=== PATIENT | female | born 1980 | race Caucasian/White ===

== ENCOUNTER 2017-10-07 11:12 | Emergency (ER) | payer OTHER ==
[~2017-10-07] VITALS: Ht 182.9 cm; Wt 73.2 kg
[~2017-10-07 11:12] MED LIST: AUGMENTIN875 MG PO; BUPRENORPHINE HC8 MG SL; CITALOPRAM HBR40 MG PO; CLINDAMYCIN HC300 MG PO; DOXYCYCLINE HY100 MG PO; MOTRIN800 MG PO; Motrin PO; NATALCARE RX1 TABLE1 PO; SUBUTEX8 MG SL
[2017-10-07] MEDS ORDERED: BACTRIM,SEPT1 TABLET PO (13:27)
[2017-10-07] MEDS ORDERED: KEFLEX500 MG PO (13:27)
[2017-10-07 13:40] VITALS: BP 139/85
== END 2017-10-07 13:42 | disposition home or self-care (01) ==
LOC: EME 11:12
DX: L03.116 Cellulitis of left lower limb (principal); L03.115 Cellulitis of right lower limb; Z86.14 Personal history of Methicillin resistant Staphylococcus aureus infection; F41.9 Anxiety disorder, unspecified; F32.9 Major depressive disorder, single episode, unspecified; F17.200 Nicotine dependence, unspecified, uncomplicated
CPT/HCPCS: 99281; 99284

== ENCOUNTER 2018-01-21 03:17 | Inpatient (IN) | payer OTHER ==
[~2018-01-21] VITALS: Ht 182.9 cm; Wt 75.2 kg
[~2018-01-21 03:17] MED LIST changes: +BACTRIM,SEPT1 TABLET PO; +KEFLEX500 MG PO
[2018-01-21 04:04] LABS: HEMATOCRIT 29.9 % (36.0-46.0); HEMOGLOBIN 9.8 G/DL (11.9-15.5); MCH 29.2 PG (29.0-34.0); MCHC 32.8 G/DL (30.0-36.0); RBC DIS.WIDTH-CV 15.5 % (11.8-14.6); RED BLOOD COUNT 3.36 M/uL (3.80-5.20); WHITE BLOOD COUNT 6.9 K/uL (4.1-10.2)
[2018-01-21 04:07] LABS: CHLORIDE 100 mEq/L (99-109); POTASSIUM 4.5 mEq/L (3.7-5.4); SODIUM 142 mEq/L (136-147)
[2018-01-21 04:09] LABS: GLUCOSE 136 mg/dL (70-99)
[2018-01-21 04:12] LABS: CREATININE 3.9 mg/dL (0.6-1.3); GFR ESTIMATE (CALCULATED) 14 mL/min/
[2018-01-21 04:13] LABS: UREA NITROGEN (BUN) 36 mg/dL (9-23)
[2018-01-21 04:17] LABS: TROP-I INTERPRETATION NEGATIVE; TROPONIN-I 0.05 ng/mL (0.0-0.30)
[2018-01-21 05:04] LABS: PLAT.SUFFICIENCY VERY DECREASED
[2018-01-21 05:14] LABS: INTER. NORMALIZED RATIO 1.3
[2018-01-21 05:17] LABS: PTT 32.4 SEC (25-37)
[2018-01-21 06:50] LABS: PLATELET COUNT 5 K/uL (156-360)
[2018-01-21 07:55] LABS: C-REACTIVE PROTEIN 42.4 MG/L (0-10)
[2018-01-21 08:03] LABS: BASOPHIL (%) 0.8 % (0-1); BASOPHIL COUNT 0.1 K/uL (0-0.1); EOSINOPHIL (%) 0.3 % (0-5); HEMATOCRIT 24.7 % (36.0-46.0); HEMOGLOBIN 8.1 G/DL (11.9-15.5); IMMATURE GRANULOCYTE (%) 0.5 % (0.0-0.7); LYMPHOCYTE (%) 22.9 % (15-42); LYMPHOCYTE COUNT 1.4 K/uL (1.0-2.8); MCH 29.3 PG (29.0-34.0); MCHC 32.8 G/DL (30.0-36.0); MCV 89.5 FL (83-99); MONOCYTE (%) 6.3 % (3-12); MONOCYTE COUNT 0.4 K/uL (0-0.8); NEUTROPHIL (%) 69.2 % (45-76); NEUTROPHIL COUNT 4.2 K/uL (1.8-6.4); PLATELET COUNT 236 K/uL (156-360); RBC DIS.WIDTH-CV 15.7 % (11.8-14.6); RBC DIS.WIDTH-SD 51.3 % (39-53); RED BLOOD COUNT 2.76 M/uL (3.80-5.20); WHITE BLOOD COUNT 6.1 K/uL (4.1-10.2)
[2018-01-21 08:11] LABS: FIBRINOGEN 315 mg/dL (150-450)
[2018-01-21] MEDS ORDERED: PROVENTIL,2.5 MG/3 M IH (08:38)
[2018-01-21] MEDS ORDERED: TYLENOL REGULA325 MG PO (08:38)
[2018-01-21] MEDS ORDERED: COLACE100 MG PO (08:39)
[2018-01-21] MEDS ORDERED: CELEXA20 MG PO (08:39)
[2018-01-21] MEDS ORDERED: LITE COAT ASPI325 M1 PO (08:39)
[2018-01-21] MEDS ORDERED: IRON325 M1 PO (08:40)
[2018-01-21] MEDS ORDERED: ZESTRIL10 MG PO (08:41)
[2018-01-21] MEDS ORDERED: SYNTHROID25 MCG PO (08:41)
[2018-01-21] MEDS ORDERED: PROTONIX40 MG PO (08:42)
[2018-01-21] MEDS ORDERED: ROXICODONE5 MG PO (08:42)
[2018-01-21] MEDS ORDERED: TOPROL XL25 MG PO (08:42)
[2018-01-21] MEDS ORDERED: NEPHRO-VITE,1 TABLET PO (08:43)
[2018-01-21 08:47] LABS: HEMOGLOBIN 8.2 G/DL (11.9-15.5); MCH 29.6 PG (29.0-34.0); MCHC 32.8 G/DL (30.0-36.0); MCV 90.3 FL (83-99); PLATELET COUNT 209 K/uL (156-360); RBC DIS.WIDTH-CV 15.7 % (11.8-14.6); RBC DIS.WIDTH-SD 51.6 % (39-53); RED BLOOD COUNT 2.77 M/uL (3.80-5.20); WHITE BLOOD COUNT 5.4 K/uL (4.1-10.2)
[2018-01-21 09:38] LABS: D-DIMER LATEX POSITIVE
[2018-01-21 09:44] LABS: SCHISTOCYTES NONE SEEN
[2018-01-21 09:48] VITALS: BP 134/90
[2018-01-21 10:48] LABS: ERTH.SED.RATE 31 MM/HR (0-20)
[2018-01-21 12:10] VITALS: BP 130/89
[2018-01-21 16:07] LABS: ALBUMIN 3.1 G/DL (3.2-4.8); IRON 27 MCG/DL (35-150); TRANSFERRIN (TIBC) 179.4 mg/dL (215-380); TRANSFERRIN SATUR. 15 % (20-55)
[2018-01-21 16:10] VITALS: BP 116/89
[2018-01-21 19:15] VITALS: BP 110/80
[2018-01-21 23:01] VITALS: BP 101/70
[2018-01-22 03:45] VITALS: BP 114/79
[2018-01-22 08:19] LABS: BASOPHIL COUNT 0.1 K/uL (0-0.1); EOSINOPHIL (%) 2.6 % (0-5); EOSINOPHIL COUNT 0.1 K/uL (0-0.3); HEMATOCRIT 24.1 % (36.0-46.0); HEMOGLOBIN 7.6 G/DL (11.9-15.5); IMMATURE GRANULOCYTE (%) 0.2 % (0.0-0.7); LYMPHOCYTE (%) 31.8 % (15-42); LYMPHOCYTE COUNT 1.6 K/uL (1.0-2.8); MCHC 31.5 G/DL (30.0-36.0); MONOCYTE (%) 9.2 % (3-12); MONOCYTE COUNT 0.5 K/uL (0-0.8); NEUTROPHIL (%) 55.2 % (45-76); NEUTROPHIL COUNT 2.8 K/uL (1.8-6.4); PLATELET COUNT 217 K/uL (156-360); RBC DIS.WIDTH-CV 15.5 % (11.8-14.6); RBC DIS.WIDTH-SD 51.8 % (39-53); RED BLOOD COUNT 2.62 M/uL (3.80-5.20)
[2018-01-22 08:29] LABS: ALBUMIN 2.8 G/DL (3.2-4.8); CHLORIDE 98 MEQ/L (99-109); POTASSIUM 4.3 MEQ/L (3.7-5.4); SODIUM 136 MEQ/L (136-147)
[2018-01-22 08:34] LABS: CREATININE 3.3 MG/DL (0.6-1.3); GFR ESTIMATE (CALCULATED) 17 mL/min/; GLUCOSE 146 mg/dL (70-99); PHOSPHORUS 4.8 mg/dL (2.5-4.9); UREA NITROGEN (BUN) 28 mg/dL (9-23)
[2018-01-22 11:09] LABS: ALKALINE PHOSPHATASE 80 IU/L (3-129); ALT (GPT) 9 IU/L (3-49); AST (GOT) 11 IU/L (2-34); DIRECT BILIRUBIN 0.1 mg/dL (0.0-0.3); TOTAL BILIRUBIN 0.4 MG/DL (0.0-1.0)
[2018-01-22 15:49] VITALS: BP 106/74
[2018-01-22 20:15] VITALS: BP 109/75
[2018-01-23 00:05] VITALS: BP 99/62
[2018-01-23 01:41] LABS: APPEARANCE CLOUDY ((CLEAR)); COLOR BROWN ((YELLOW))
[2018-01-23 01:42] LABS: BILIRUBIN MODERATE; BLOOD LARGE; GLUCOSE (STRIP) NEGATIVE; KETONES NEGATIVE; LEUKOCYTES NEGATIVE; NITRITE NEGATIVE; PH, URINE 8.5 (5-8); PROTEIN (STRIP) 2000; UROBILINOGEN 0.2 MG/DL (0.2-1.0)
[2018-01-23 01:45] LABS: ICTOTEST NEGATIVE
[2018-01-23 01:53] LABS: BACTERIA RARE /HPF; EPITHELIAL CELLS RARE /HPF; MUCUS NONE SEEN /LPF; RED BLOOD CELLS TNTC /HPF (0-5); UCUL ADDED? YES; WHITE BLOOD CELLS 0-5 /HPF (0-5)
[2018-01-23 02:12] LABS: BENZODIAZEPINES, URINE SCREEN Negative (200 ng/mL)
[2018-01-23 04:12] VITALS: BP 111/23
[2018-01-23 08:20] VITALS: BP 114/80
[2018-01-23 12:21] VITALS: BP 105/68
[2018-01-23] MEDS ORDERED: VENTOLIN HFA18 GM IH (14:20)
== END 2018-01-23 15:08 | disposition home or self-care (01) | DRG 640 ==
LOC: EME 03:17 → ENRESERV 06:04 → EDOF 06:04 → 4EAST 06:36 → EDOF 06:36 → ENRESERV 06:49 → CANRESERV 06:54 → ENRESERV 07:04 → EDOF 07:59 → ENRESERV 08:18 → 4EAST 09:14 → ENRESERV 21:41 → 5EAST 22:44
PROVIDERS: Hospitalist; Internal Medicine Nephrology; Physician Assistant Medical
PROC: 0W993ZZ Drainage of Right Pleural Cavity, Percutaneous Approach (ICD-10-PCS; principal; 2018-01-21)
PROC: 5A1D70Z Performance of Urinary Filtration, Intermittent, Less than 6 Hours Per Day (ICD-10-PCS; principal; 2018-01-21)
DX: E87.70 Fluid overload, unspecified (principal); N18.6 End stage renal disease; I31.3 Pericardial effusion (noninflammatory); J90 Pleural effusion, not elsewhere classified; Z99.2 Dependence on renal dialysis; E87.2 Acidosis; D63.1 Anemia in chronic kidney disease; Z95.2 Presence of prosthetic heart valve; Z86.14 Personal history of Methicillin resistant Staphylococcus aureus infection; Z79.82 Long term (current) use of aspirin; F17.200 Nicotine dependence, unspecified, uncomplicated
CPT/HCPCS: 71046; 71275; 76942; 80048; 80069; 80076; 80306 90; 81003; 82040; 82948; 83540; 83605; 84466; 84484; 85025; 85027; 85378; 85379; 85384; 85610; 85651; 85730; 86140; 87040; 87077; 87086; 87186; 93005; 93971; 94640; 94640 76; 94799; 99202; 99281; 99285; J1644; J1756; J2270; J2543; J3010; J3370; J7050

== ENCOUNTER 2018-01-27 19:47 | Emergency (ER) | payer OTHER ==
[~2018-01-27] VITALS: Ht 188 cm; Wt 65.8 kg
[~2018-01-27 19:47] MED LIST changes: +CELEXA20 MG PO; +COLACE100 MG PO; +IRON325 M1 PO; +LITE COAT ASPI325 M1 PO; +NEPHRO-VITE,1 TABLET PO; +PROTONIX40 MG PO; +PROVENTIL,2.5 MG/3 M IH; +ROXICODONE5 MG PO; +SYNTHROID25 MCG PO; +TOPROL XL25 MG PO; +TYLENOL REGULA325 MG PO; +VENTOLIN HFA18 GM IH; +ZESTRIL10 MG PO
[2018-01-27 20:33] LABS: HEMATOCRIT 29.1 % (36.0-46.0); HEMOGLOBIN 9.2 G/DL (11.9-15.5); MCH 29.2 PG (29.0-34.0); MCHC 31.6 G/DL (30.0-36.0); MCV 92.4 FL (83-99); PLATELET COUNT 201 K/uL (156-360); RBC DIS.WIDTH-SD 52.8 % (39-53); RED BLOOD COUNT 3.15 M/uL (3.80-5.20); WHITE BLOOD COUNT 4.7 K/uL (4.1-10.2)
[2018-01-27 20:49] LABS: CHLORIDE 98 mEq/L (99-109); POTASSIUM 4.2 mEq/L (3.7-5.4)
[2018-01-27 20:51] LABS: GLUCOSE 128 mg/dL (70-99)
[2018-01-27 20:55] LABS: UREA NITROGEN (BUN) 20 mg/dL (9-23)
[2018-01-27 20:58] LABS: CREATININE 3.9 mg/dL (0.6-1.3); GFR ESTIMATE (CALCULATED) 14 mL/min/; SODIUM 143 mEq/L (136-147)
[2018-01-27 21:03] LABS: TROP-I INTERPRETATION NEGATIVE; TROPONIN-I 0.05 ng/mL (0.0-0.30)
[2018-01-27] MEDS ORDERED: PERCOCET 5/31 TABLET PO (22:52)
[2018-01-28 01:16] VITALS: BP 110/80
== END 2018-01-28 01:17 | disposition home or self-care (01) ==
LOC: EME 19:47
DX: R07.9 Chest pain, unspecified (principal); Z98.890 Other specified postprocedural states; R06.02 Shortness of breath; J45.909 Unspecified asthma, uncomplicated; I10 Essential (primary) hypertension; Z86.14 Personal history of Methicillin resistant Staphylococcus aureus infection; Z79.82 Long term (current) use of aspirin; F17.200 Nicotine dependence, unspecified, uncomplicated
CPT/HCPCS: 71046; 80048; 84484; 85027; 93005; 99281; 99284

== ENCOUNTER 2018-02-02 00:26 | Emergency (ER) | payer OTHER ==
[~2018-02-02] VITALS: Ht 182.9 cm; Wt 63.3 kg
[~2018-02-02 00:26] MED LIST changes: +PERCOCET 5/31 TABLET PO
[2018-02-02 00:54] LABS: HEMOGLOBIN 9.7 G/DL (11.9-15.5); MCH 29.4 PG (29.0-34.0); MCHC 32.3 G/DL (30.0-36.0); MCV 90.9 FL (83-99); RBC DIS.WIDTH-CV 15.9 % (11.8-14.6); RBC DIS.WIDTH-SD 52.5 % (39-53); WHITE BLOOD COUNT 8.1 K/uL (4.1-10.2)
[2018-02-02 00:59] LABS: PLATELET COUNT 272 K/uL (156-360)
[2018-02-02 01:02] LABS: CHLORIDE 98 mEq/L (99-109); SODIUM 141 mEq/L (136-147)
[2018-02-02 01:03] LABS: POTASSIUM 2.7 mEq/L (3.7-5.4)
[2018-02-02 01:04] LABS: GLUCOSE 110 mg/dL (70-99)
[2018-02-02 01:08] LABS: CREATININE 3.4 mg/dL (0.6-1.3); GFR ESTIMATE (CALCULATED) 16 mL/min/
[2018-02-02 01:09] LABS: UREA NITROGEN (BUN) 29 mg/dL (9-23)
[2018-02-02 01:30] LABS: ALBUMIN 3.9 g/dL (3.2-4.8)
[2018-02-02 01:32] LABS: TOTAL PROTEIN 7.3 g/dL (6.4-8.3)
[2018-02-02 01:34] LABS: TOTAL BILIRUBIN 0.4 mg/dL (0.0-1.0)
[2018-02-02 01:35] LABS: ALKALINE PHOSPHATASE 87 IU/L (3-129)
[2018-02-02 01:38] LABS: ALT (GPT) 8 IU/L (3-49); AST (GOT) 12 IU/L (2-34); DIRECT BILIRUBIN 0.2 mg/dL (0.0-0.3)
[2018-02-02 01:39] LABS: LIPASE 176 U/L (1.0-51.0); TROP-I INTERPRETATION NEGATIVE; TROPONIN-I 0.05 ng/mL (0.0-0.30)
[2018-02-02] MEDS ORDERED: DILAUDID2 MG PO (02:34)
[2018-02-02 03:35] VITALS: BP 129/99
== END 2018-02-02 03:36 | disposition home or self-care (01) ==
LOC: EME 00:26
DX: N17.9 Acute kidney failure, unspecified (principal); I12.0 Hypertensive chronic kidney disease with stage 5 chronic kidney disease or end stage renal disease; N18.6 End stage renal disease; Z99.2 Dependence on renal dialysis; E87.6 Hypokalemia; R07.89 Other chest pain; G89.29 Other chronic pain; J45.909 Unspecified asthma, uncomplicated; G43.909 Migraine, unspecified, not intractable, without status migrainosus; F41.9 Anxiety disorder, unspecified; F32.9 Major depressive disorder, single episode, unspecified; F98.8 Other specified behavioral and emotional disorders with onset usually occurring in childhood and adolescence; Z98.890 Other specified postprocedural states; Z87.891 Personal history of nicotine dependence; Z86.14 Personal history of Methicillin resistant Staphylococcus aureus infection; Z87.19 Personal history of other diseases of the digestive system
CPT/HCPCS: 71046; 80048; 80076; 83690; 84484; 85027; 99281; 99284; J3010

== ENCOUNTER 2018-02-03 12:01 | Emergency (ER) | payer OTHER ==
[~2018-02-03] VITALS: Ht 182.9 cm; Wt 59.2 kg
[~2018-02-03 12:01] MED LIST changes: +DILAUDID2 MG PO
[2018-02-03 13:27] LABS: HEMATOCRIT 31.5 % (36.0-46.0); HEMOGLOBIN 10.2 G/DL (11.9-15.5); MCH 29.4 PG (29.0-34.0); MCHC 32.4 G/DL (30.0-36.0); MCV 90.8 FL (83-99); PLATELET COUNT 255 K/uL (156-360); RBC DIS.WIDTH-SD 53.4 % (39-53); RED BLOOD COUNT 3.47 M/uL (3.80-5.20); WHITE BLOOD COUNT 6.7 K/uL (4.1-10.2)
[2018-02-03 13:36] LABS: ALBUMIN 3.8 g/dL (3.2-4.8); CHLORIDE 97 mEq/L (99-109); SODIUM 141 mEq/L (136-147)
[2018-02-03 13:38] LABS: GLUCOSE 106 mg/dL (70-99); POTASSIUM 3.9 mEq/L (3.7-5.4); TOTAL PROTEIN 6.9 g/dL (6.4-8.3)
[2018-02-03 13:41] LABS: TOTAL BILIRUBIN 0.7 mg/dL (0.0-1.0)
[2018-02-03 13:42] LABS: ALKALINE PHOSPHATASE 81 IU/L (3-129); CREATININE 2.8 mg/dL (0.6-1.3); GFR ESTIMATE (CALCULATED) 20 mL/min/
[2018-02-03 13:43] LABS: AST (GOT) 13 IU/L (2-34); UREA NITROGEN (BUN) 20 mg/dL (9-23)
[2018-02-03 13:45] LABS: ALT (GPT) 8 IU/L (3-49); LIPASE 68 U/L (1.0-51.0)
[2018-02-03 13:51] LABS: TROP-I INTERPRETATION NEGATIVE; TROPONIN-I 0.05 ng/mL (0.0-0.30)
[2018-02-03 18:18] VITALS: BP 135/91
== END 2018-02-03 18:15 | disposition home or self-care (01) ==
LOC: EME 12:01
PROVIDERS: Emergency Medicine
DX: R07.9 Chest pain, unspecified (principal); G89.12 Acute post-thoracotomy pain; Z95.2 Presence of prosthetic heart valve; I12.9 Hypertensive chronic kidney disease with stage 1 through stage 4 chronic kidney disease, or unspecified chronic kidney disease; N18.9 Chronic kidney disease, unspecified; Z99.2 Dependence on renal dialysis; J45.909 Unspecified asthma, uncomplicated; F32.9 Major depressive disorder, single episode, unspecified; F41.9 Anxiety disorder, unspecified; Z87.891 Personal history of nicotine dependence
CPT/HCPCS: 71045; 71250; 74150; 80053; 83690; 84484; 85027; 93005; 99281; 99285

== ENCOUNTER 2018-02-22 15:20 | Inpatient (IN) | payer OTHER ==
[~2018-02-22] VITALS: Ht 182.9 cm; Wt 60.0 kg
[2018-02-22 16:27] LABS: CHLORIDE 99 mEq/L (99-109); POTASSIUM 4.3 mEq/L (3.7-5.4); SODIUM 141 mEq/L (136-147)
[2018-02-22 16:29] LABS: GLUCOSE 98 mg/dL (70-99)
[2018-02-22 16:30] LABS: HEMATOCRIT 38.6 % (36.0-46.0); MCH 29.6 PG (29.0-34.0); MCHC 31.6 G/DL (30.0-36.0); MCV 93.7 FL (83-99); PLATELET COUNT 212 K/uL (156-360); RBC DIS.WIDTH-CV 16.3 % (11.8-14.6); RBC DIS.WIDTH-SD 56.1 % (39-53); RED BLOOD COUNT 4.12 M/uL (3.80-5.20); WHITE BLOOD COUNT 4.1 K/uL (4.1-10.2)
[2018-02-22 16:31] LABS: HEMOGLOBIN 12.2 G/DL (11.9-15.5)
[2018-02-22 16:33] LABS: CREATININE 3.1 mg/dL (0.6-1.3); GFR ESTIMATE (CALCULATED) 18 mL/min/
[2018-02-22 16:34] LABS: UREA NITROGEN (BUN) 24 mg/dL (9-23)
[2018-02-22 16:41] LABS: TROP-I INTERPRETATION NEGATIVE; TROPONIN-I 0.01 ng/mL (0.0-0.30)
[2018-02-22] MEDS ORDERED: TRAMADOL HCL50 MG PO (17:53)
[2018-02-22 20:32] VITALS: BP 122/77
[2018-02-22 23:57] VITALS: BP 109/71
[2018-02-23 04:19] VITALS: BP 115/75
[2018-02-23 08:32] VITALS: BP 131/91
[2018-02-23 08:38] LABS: THYROTROPIN (TSH) 2.2 MIU/L (0.4-5.5)
[2018-02-23 08:40] LABS: HEMATOCRIT 30.1 % (36.0-46.0); HEMOGLOBIN 9.2 G/DL (11.9-15.5); MCH 28.9 PG (29.0-34.0); MCHC 30.6 G/DL (30.0-36.0); MCV 94.7 FL (83-99); PLATELET COUNT 195 K/uL (156-360); RBC DIS.WIDTH-CV 16.2 % (11.8-14.6); RBC DIS.WIDTH-SD 56.7 % (39-53); RED BLOOD COUNT 3.18 M/uL (3.80-5.20); WHITE BLOOD COUNT 4.2 K/uL (4.1-10.2)
[2018-02-23 09:00] LABS: TROP-I INTERPRETATION NEGATIVE; TROPONIN-I < 0.01 ng/mL (0.0-0.30)
[2018-02-23 09:08] LABS: CHLORIDE 104 MEQ/L (99-109); CREATININE 3.5 MG/DL (0.6-1.3); GFR ESTIMATE (CALCULATED) 16 mL/min/; GLUCOSE 93 mg/dL (70-99); POTASSIUM 4.4 MEQ/L (3.7-5.4); SODIUM 140 MEQ/L (136-147); UREA NITROGEN (BUN) 32 mg/dL (9-23)
[2018-02-23 11:11] LABS: QUANTITATIVE HCG < 4.0 MIU/ML
[2018-02-23 19:00] VITALS: BP 115/78
[2018-02-24] VITALS: BP 127/89
[2018-02-24 04:32] VITALS: BP 121/90
[2018-02-24 05:12] LABS: HEMATOCRIT 30.7 % (36.0-46.0); HEMOGLOBIN 9.7 G/DL (11.9-15.5); MCHC 31.6 G/DL (30.0-36.0); MCV 91.6 FL (83-99); PLATELET COUNT 232 K/uL (156-360); RBC DIS.WIDTH-SD 53.6 % (39-53); RED BLOOD COUNT 3.35 M/uL (3.80-5.20); WHITE BLOOD COUNT 5.4 K/uL (4.1-10.2)
[2018-02-24 08:00] VITALS: BP 120/87
[2018-02-24 11:13] LABS: TROP-I INTERPRETATION NEGATIVE; TROPONIN-I 0.02 ng/mL (0.0-0.30)
[2018-02-24 12:08] VITALS: BP 117/88
[2018-02-24 15:22] VITALS: BP 115/75
[2018-02-24 19:12] VITALS: BP 115/79
[2018-02-25 00:10] VITALS: BP 95/65
[2018-02-25 04:18] VITALS: BP 99/58
[2018-02-25 07:35] VITALS: BP 101/68
[2018-02-25 08:27] LABS: BASOPHIL COUNT 0.1 K/uL (0-0.1); EOSINOPHIL (%) 2.4 % (0-5); EOSINOPHIL COUNT 0.1 K/uL (0-0.3); HEMATOCRIT 30.1 % (36.0-46.0); HEMOGLOBIN 9.4 G/DL (11.9-15.5); IMMATURE GRANULOCYTE (%) 0.2 % (0.0-0.7); LYMPHOCYTE (%) 22.2 % (15-42); LYMPHOCYTE COUNT 1.1 K/uL (1.0-2.8); MCH 29.4 PG (29.0-34.0); MCHC 31.2 G/DL (30.0-36.0); MCV 94.1 FL (83-99); MONOCYTE (%) 6.5 % (3-12); MONOCYTE COUNT 0.3 K/uL (0-0.8); NEUTROPHIL (%) 67.7 % (45-76); NEUTROPHIL COUNT 3.4 K/uL (1.8-6.4); PLATELET COUNT 213 K/uL (156-360); RBC DIS.WIDTH-CV 15.9 % (11.8-14.6); RBC DIS.WIDTH-SD 54.9 % (39-53)
[2018-02-25 08:50] LABS: ALBUMIN 3.5 G/DL (3.2-4.8); CHLORIDE 102 MEQ/L (99-109); POTASSIUM 4.6 MEQ/L (3.7-5.4); SODIUM 138 MEQ/L (136-147)
[2018-02-25 08:55] LABS: CREATININE 3.8 MG/DL (0.6-1.3); GFR ESTIMATE (CALCULATED) 14 mL/min/; PHOSPHORUS 4.7 mg/dL (2.5-4.9); UREA NITROGEN (BUN) 42 mg/dL (9-23)
[2018-02-25 08:56] LABS: GLUCOSE 155 mg/dL (70-99)
[2018-02-25 13:08] VITALS: BP 107/68
[2018-02-25] MEDS ORDERED: GABAPENTIN300 MG PO (15:33)
[2018-02-25] MEDS ORDERED: OXYCODONE HCL5 MG PO (15:33)
[2018-02-25] MEDS ORDERED: TOPROL XL25 MG PO (15:33)
[2018-02-25] MEDS ORDERED: TIZANIDINE HCL2 MG PO (15:33)
[2018-02-25 15:59] VITALS: BP 110/70
[2018-02-25] MEDS ORDERED: LIDOCARE1 EACH TP (16:10)
== END 2018-02-25 18:30 | disposition home or self-care (01) | DRG 947 ==
LOC: EME 15:20 → 4SOUTH 19:08 → EDOF 19:08 → ENRESERV 19:12 → 4SOUTH 20:21
PROVIDERS: Internal Medicine; Internal Medicine Cardiovascular Disease; Internal Medicine Nephrology
PROC: 5A1D70Z Performance of Urinary Filtration, Intermittent, Less than 6 Hours Per Day (ICD-10-PCS; principal; 2018-02-22)
DX: G89.18 Other acute postprocedural pain (principal); R07.89 Other chest pain; I31.3 Pericardial effusion (noninflammatory); I13.2 Hypertensive heart and chronic kidney disease with heart failure and with stage 5 chronic kidney disease, or end stage renal disease; I50.22 Chronic systolic (congestive) heart failure; N99.0 Postprocedural (acute) (chronic) kidney failure; N18.6 End stage renal disease; D63.1 Anemia in chronic kidney disease; I42.0 Dilated cardiomyopathy; E03.9 Hypothyroidism, unspecified; F11.21 Opioid dependence, in remission; F90.9 Attention-deficit hyperactivity disorder, unspecified type; G89.29 Other chronic pain; F32.9 Major depressive disorder, single episode, unspecified; F41.9 Anxiety disorder, unspecified; I27.20 Pulmonary hypertension, unspecified; D50.9 Iron deficiency anemia, unspecified; I08.1 Rheumatic disorders of both mitral and tricuspid valves; Z86.14 Personal history of Methicillin resistant Staphylococcus aureus infection; Z99.2 Dependence on renal dialysis; Z79.82 Long term (current) use of aspirin; Z87.891 Personal history of nicotine dependence; Z87.74 Personal history of (corrected) congenital malformations of heart and circulatory system; Z22.322 Carrier or suspected carrier of Methicillin resistant Staphylococcus aureus
CPT/HCPCS: 71046; 71250; 71275; 78582; 80048; 80069; 84443; 84484; 84702; 85025; 85027; 93005; 93306; 93970; 99281; 99285; A9540; A9567; G0378; J0780; J1200; J1644; J1650; J1885; Q0169

== ENCOUNTER 2018-04-24 00:27 | Inpatient (IN) | payer OTHER ==
[~2018-04-24] VITALS: Ht 182.9 cm; Wt 68.0 kg
[~2018-04-24 00:27] MED LIST changes: +GABAPENTIN300 MG PO; +LIDOCARE1 EACH TP; -LITE COAT ASPI325 M1 PO; +LO-DOSE ASPIRIN81 M1 PO; +OXYCODONE HCL5 MG PO; +TIZANIDINE HCL2 MG PO; +TRAMADOL HCL50 MG PO
[2018-04-24 01:08] LABS: HEMATOCRIT 30.7 % (36.0-46.0); HEMOGLOBIN 10.1 G/DL (11.9-15.5); MCH 29.8 PG (29.0-34.0); MCHC 32.9 G/DL (30.0-36.0); MCV 90.6 FL (83-99); PLATELET COUNT 150 K/uL (156-360); RBC DIS.WIDTH-CV 14.8 % (11.8-14.6); RBC DIS.WIDTH-SD 48.7 % (39-53); RED BLOOD COUNT 3.39 M/uL (3.80-5.20); WHITE BLOOD COUNT 7.7 K/uL (4.1-10.2)
[2018-04-24 01:19] LABS: CHLORIDE 103 mEq/L (99-109); POTASSIUM 4.2 mEq/L (3.7-5.4); SODIUM 136 mEq/L (136-147)
[2018-04-24 01:25] LABS: GFR ESTIMATE (CALCULATED) 16 mL/min/
[2018-04-24 01:26] LABS: CREATININE 3.4 mg/dL (0.6-1.3); UREA NITROGEN (BUN) 32 mg/dL (9-23)
[2018-04-24 02:16] LABS: GLUCOSE 109 mg/dL (70-99)
[2018-04-24 02:49] LABS: APPEARANCE CLOUDY ((CLEAR)); BILIRUBIN NEGATIVE; BLOOD LARGE; GLUCOSE (STRIP) 50; KETONES NEGATIVE; LEUKOCYTES NEGATIVE; NITRITE NEGATIVE; PROTEIN (STRIP) >=500; SPECIFIC GRAVITY 1.018 (1.000-1.030); UROBILINOGEN 0.2 MG/DL (0.2-1.0)
[2018-04-24 03:08] LABS: COLOR RED ((YELLOW))
[2018-04-24 04:07] LABS: RED BLOOD CELLS TNTC /HPF (0-5); UCUL ADDED? YES
[2018-04-24 04:44] LABS: BASOPHIL (%) 0.6 % (0-1); BASOPHIL COUNT 0.1 K/uL (0-0.1); EOSINOPHIL (%) 1.3 % (0-5); EOSINOPHIL COUNT 0.1 K/uL (0-0.3); HEMATOCRIT 27.7 % (36.0-46.0); HEMOGLOBIN 9.2 G/DL (11.9-15.5); IMMATURE GRANULOCYTE (%) 0.4 % (0.0-0.7); LYMPHOCYTE (%) 20.6 % (15-42); LYMPHOCYTE COUNT 1.8 K/uL (1.0-2.8); MCH 30.1 PG (29.0-34.0); MCHC 33.2 G/DL (30.0-36.0); MCV 90.5 FL (83-99); MONOCYTE (%) 12.2 % (3-12); MONOCYTE COUNT 1.1 K/uL (0-0.8); NEUTROPHIL (%) 64.9 % (45-76); NEUTROPHIL COUNT 5.8 K/uL (1.8-6.4); PLATELET COUNT 147 K/uL (156-360); RBC DIS.WIDTH-CV 14.8 % (11.8-14.6); RBC DIS.WIDTH-SD 48.8 % (39-53); RED BLOOD COUNT 3.06 M/uL (3.80-5.20); WHITE BLOOD COUNT 8.9 K/uL (4.1-10.2)
[2018-04-24 05:10] LABS: ALBUMIN 3.4 g/dL (3.2-4.8); CHLORIDE 104 mEq/L (99-109); POTASSIUM 4.2 mEq/L (3.7-5.4); SODIUM 137 mEq/L (136-147)
[2018-04-24 05:12] LABS: GLUCOSE 99 mg/dL (70-99)
[2018-04-24 05:13] LABS: TOTAL PROTEIN 5.7 g/dL (6.4-8.3)
[2018-04-24 05:14] LABS: TOTAL BILIRUBIN 0.8 mg/dL (0.0-1.0)
[2018-04-24 05:16] LABS: ALKALINE PHOSPHATASE 56 IU/L (3-129); CREATININE 3.6 mg/dL (0.6-1.3); GFR ESTIMATE (CALCULATED) 15 mL/min/
[2018-04-24 05:17] LABS: UREA NITROGEN (BUN) 36 mg/dL (9-23)
[2018-04-24 05:18] LABS: AST (GOT) 18 IU/L (2-34)
[2018-04-24 05:19] LABS: ALT (GPT) 14 IU/L (3-49)
[2018-04-24 05:46] VITALS: BP 115/60
[2018-04-24 06:07] LABS: INTER. NORMALIZED RATIO 1.2
[2018-04-24 07:32] VITALS: BP 96/54
[2018-04-24 11:06] VITALS: BP 98/56
[2018-04-24] MEDS ORDERED: MIDODRINE HCL2.5 MG PO (11:25)
[2018-04-24] MEDS ORDERED: DILAUDID2 MG PO (11:26)
[2018-04-24 12:12] VITALS: BP 118/58
[2018-04-24 13:06] LABS: TROP-I INTERPRETATION NEGATIVE; TROPONIN-I 0.03 ng/mL (0.0-0.30)
[2018-04-24 14:13] LABS: C-REACTIVE PROTEIN 147.8 MG/L (0-10); MAGNESIUM 2.3 mg/dl (1.3-2.7)
[2018-04-24 17:14] VITALS: BP 142/84
[2018-04-24 20:17] VITALS: BP 118/66
[2018-04-25] VITALS (7 sets, daily range): BP systolic 109–153; BP diastolic 57–82
[2018-04-25 07:06] LABS: TROP-I INTERPRETATION NEGATIVE; TROPONIN-I < 0.01 ng/mL (0.0-0.30)
[2018-04-25 07:07] LABS: ALBUMIN 3.4 G/DL (3.2-4.8); ALKALINE PHOSPHATASE 47 IU/L (3-129); ALT (GPT) 13 IU/L (3-49); AST (GOT) 19 IU/L (2-34); CHLORIDE 110 MEQ/L (99-109); CREATININE 4.1 MG/DL (0.6-1.3); GFR ESTIMATE (CALCULATED) 13 mL/min/; GLUCOSE 106 mg/dL (70-99); PHOSPHORUS 6.8 mg/dL (2.5-4.9); SODIUM 143 MEQ/L (136-147); TOTAL BILIRUBIN 0.5 MG/DL (0.0-1.0); TOTAL PROTEIN 5.8 G/DL (6.4-8.3); UREA NITROGEN (BUN) 48 mg/dL (9-23); VANCOMYCIN, TROUGH 16.8 MCG/ML (10-20)
[2018-04-25 09:27] LABS: BASOPHIL (%) 0.6 % (0-1); EOSINOPHIL COUNT 0.2 K/uL (0-0.3); HEMATOCRIT 30.7 % (36.0-46.0); HEMOGLOBIN 9.8 G/DL (11.9-15.5); IMMATURE GRANULOCYTE (%) 0.2 % (0.0-0.7); LYMPHOCYTE (%) 34.7 % (15-42); LYMPHOCYTE COUNT 1.8 K/uL (1.0-2.8); MCH 29.3 PG (29.0-34.0); MCHC 31.9 G/DL (30.0-36.0); MCV 91.9 FL (83-99); MONOCYTE (%) 10.3 % (3-12); MONOCYTE COUNT 0.5 K/uL (0-0.8); NEUTROPHIL (%) 51.2 % (45-76); NEUTROPHIL COUNT 2.6 K/uL (1.8-6.4); PLATELET COUNT 149 K/uL (156-360); RBC DIS.WIDTH-CV 14.4 % (11.8-14.6); RED BLOOD COUNT 3.34 M/uL (3.80-5.20); WHITE BLOOD COUNT 5.1 K/uL (4.1-10.2)
[2018-04-25 13:21] LABS: CREATINE KINASE 20 IU/L (1-294); TOTAL CK 20 IU/L (1-294)
[2018-04-25 13:49] LABS: CK-MB 0.8 ng/mL (0.0-4.9)
[2018-04-26 04:08] VITALS: BP 136/77
[2018-04-26 06:09] LABS: BASOPHIL (%) 0.6 % (0-1); EOSINOPHIL (%) 0.3 % (0-5); HEMATOCRIT 28.5 % (36.0-46.0); HEMOGLOBIN 9.5 G/DL (11.9-15.5); IMMATURE GRANULOCYTE (%) 0.3 % (0.0-0.7); LYMPHOCYTE (%) 23.5 % (15-42); LYMPHOCYTE COUNT 0.8 K/uL (1.0-2.8); MCH 29.4 PG (29.0-34.0); MCHC 33.3 G/DL (30.0-36.0); MCV 88.2 FL (83-99); MONOCYTE (%) 4.8 % (3-12); MONOCYTE COUNT 0.2 K/uL (0-0.8); NEUTROPHIL (%) 70.5 % (45-76); NEUTROPHIL COUNT 2.5 K/uL (1.8-6.4); PLATELET COUNT 179 K/uL (156-360); RBC DIS.WIDTH-CV 13.6 % (11.8-14.6); RBC DIS.WIDTH-SD 43.9 % (39-53); RED BLOOD COUNT 3.23 M/uL (3.80-5.20); WHITE BLOOD COUNT 3.6 K/uL (4.1-10.2)
[2018-04-26 06:51] LABS: CHLORIDE 102 MEQ/L (99-109); GFR ESTIMATE (CALCULATED) 19 mL/min/; GLUCOSE 120 mg/dL (70-99); POTASSIUM 4.4 MEQ/L (3.7-5.4); SODIUM 139 MEQ/L (136-147)
[2018-04-26 06:59] LABS: CREATININE 2.9 MG/DL (0.6-1.3); UREA NITROGEN (BUN) 23 mg/dL (9-23)
[2018-04-26 08:52] VITALS: BP 146/96
[2018-04-26] MEDS ORDERED: LOPRESSOR25 MG PO (11:14)
[2018-04-26] MEDS ORDERED: RENVELA800 MG PO (11:14)
[2018-04-26] MEDS ORDERED: PREDNISONE10 MG PO (11:14)
[2018-04-26 11:15] VITALS: BP 166/87
[2018-04-26 11:35] LABS: PHOSPHORUS 3.3 mg/dL (2.5-4.9)
== END 2018-04-26 14:37 | disposition home or self-care (01) | DRG 871 ==
LOC: EME 00:27 → 5EAST 03:47 → EDOF 03:47 → ENRESERV 03:48 → 5EAST 05:31
PROVIDERS: Internal Medicine; Internal Medicine Cardiovascular Disease; Student in an Organized Health Care Education/Training Program
PROC: 5A1D70Z Performance of Urinary Filtration, Intermittent, Less than 6 Hours Per Day (ICD-10-PCS; principal; 2018-04-25)
DX: A41.9 Sepsis, unspecified organism (principal); I50.23 Acute on chronic systolic (congestive) heart failure; N18.6 End stage renal disease; R57.0 Cardiogenic shock; N17.9 Acute kidney failure, unspecified; I13.2 Hypertensive heart and chronic kidney disease with heart failure and with stage 5 chronic kidney disease, or end stage renal disease; I42.0 Dilated cardiomyopathy; G89.29 Other chronic pain; R65.11 Systemic inflammatory response syndrome (SIRS) of non-infectious origin with acute organ dysfunction; E03.9 Hypothyroidism, unspecified; D63.1 Anemia in chronic kidney disease; F11.21 Opioid dependence, in remission; F12.90 Cannabis use, unspecified, uncomplicated; F17.210 Nicotine dependence, cigarettes, uncomplicated; E83.39 Other disorders of phosphorus metabolism; R31.0 Gross hematuria; N20.0 Calculus of kidney; R16.1 Splenomegaly, not elsewhere classified; E87.8 Other disorders of electrolyte and fluid balance, not elsewhere classified; I34.0 Nonrheumatic mitral (valve) insufficiency; I36.1 Nonrheumatic tricuspid (valve) insufficiency; Z99.2 Dependence on renal dialysis; Z22.322 Carrier or suspected carrier of Methicillin resistant Staphylococcus aureus; Z79.890 Hormone replacement therapy; Z86.14 Personal history of Methicillin resistant Staphylococcus aureus infection; Z87.440 Personal history of urinary (tract) infections; Z87.74 Personal history of (corrected) congenital malformations of heart and circulatory system; Z56.0 Unemployment, unspecified; Z79.82 Long term (current) use of aspirin
CPT/HCPCS: 71046; 74176; 76770; 80048; 80053; 80202; 81003; 82550; 82553; 83605; 83690; 83735; 84100; 84484; 85025; 85027; 85610; 85651; 86038; 86140; 86235; 86658 90; 87040; 87086; 93005; 93306; 99281; 99284; J0881; J1644; J2543; J3370; J7030; J7050; J7512

== ENCOUNTER 2018-05-20 09:35 | Day surgery (SDC) | payer OTHER ==
[~2018-05-20] VITALS: Ht 182.9 cm; Wt 63.5 kg
[~2018-05-20 09:35] MED LIST changes: -CELEXA20 MG PO; +CELEXA40 MG PO; +GABAPENTIN100 MG PO; +LASIX80 MG PO; +LIDOCAINE PAIN1 EACH TP; +LOPRESSOR25 MG PO; +MIDODRINE HCL2.5 MG PO; -NEPHRO-VITE,1 TABLET PO; +PREDNISONE10 MG PO; +RENAL-VITE TAB0.8 MG PO; +RENVELA800 MG PO; +ZANAFLEX2 M1 PO; +[UNRECOGNIZED DRUG - OTHER] PO
[2018-05-20] MEDS ORDERED: VALIUM5 MG PO (10:34)
[2018-05-20 10:43] VITALS: BP 120/79
[2018-05-20 11:07] LABS: HEMATOCRIT 33.7 % (36.0-46.0); HEMOGLOBIN 11.2 G/DL (11.9-15.5); MCH 29.1 PG (29.0-34.0); MCHC 33.2 G/DL (30.0-36.0); MCV 87.5 FL (83-99); PLATELET COUNT 199 K/uL (156-360); RBC DIS.WIDTH-CV 14.3 % (11.8-14.6); RED BLOOD COUNT 3.85 M/uL (3.80-5.20); WHITE BLOOD COUNT 5.7 K/uL (4.1-10.2)
[2018-05-20 11:12] LABS: INTER. NORMALIZED RATIO 1.1
[2018-05-20 11:15] LABS: PTT 31.1 SEC (25-37)
[2018-05-20 11:29] LABS: CHLORIDE 96 MEQ/L (99-109); GFR ESTIMATE (CALCULATED) 19 mL/min/; GLUCOSE 94 mg/dL (70-99); POTASSIUM 3.7 MEQ/L (3.7-5.4); SODIUM 137 MEQ/L (136-147); UREA NITROGEN (BUN) 36 mg/dL (9-23)
[2018-05-20] MEDS ORDERED: NORCO 5/3251 TABLET PO (13:32)
[2018-05-20 14:46] VITALS: BP 109/62
[2018-05-20] MEDS ORDERED: DILAUDID2 MG PO (14:54)
[2018-05-20 15:42] VITALS: BP 97/54
[2018-05-20 16:30] VITALS: BP 110/60
== END 2018-05-20 16:25 | disposition home or self-care (01) ==
LOC: SDC 09:35
PROVIDERS: Surgery
PROC: 03180JD Bypass Left Brachial Artery to Upper Arm Vein with Synthetic Substitute, Open Approach (ICD-10-PCS; principal; 2018-05-20)
DX: I12.9 Hypertensive chronic kidney disease with stage 1 through stage 4 chronic kidney disease, or unspecified chronic kidney disease (principal); N18.6 End stage renal disease; Z99.2 Dependence on renal dialysis; I25.10 Atherosclerotic heart disease of native coronary artery without angina pectoris; E07.9 Disorder of thyroid, unspecified; Z80.7 Family history of other malignant neoplasms of lymphoid, hematopoietic and related tissues; Z87.891 Personal history of nicotine dependence; Z79.82 Long term (current) use of aspirin
CPT/HCPCS: 80048; 81025; 85027; 85610; 85730; 87641; 93005; C1768; J1100; J1170; J1644; J2250; J2405; J2720; J3010; J3370; S0020

== ENCOUNTER 2018-06-17 21:25 | Inpatient (IN) | payer OTHER ==
[~2018-06-17] VITALS: Ht 182.9 cm; Wt 67.0 kg
[~2018-06-17 21:25] MED LIST changes: +NORCO 5/3251 TABLET PO; +VALIUM5 MG PO
[2018-06-17 22:11] LABS: HEMATOCRIT 30.2 % (36.0-46.0); HEMOGLOBIN 9.8 G/DL (11.9-15.5); MCH 29.3 PG (29.0-34.0); MCHC 32.5 G/DL (30.0-36.0); MCV 90.1 FL (83-99); PLATELET COUNT 167 K/uL (156-360); RBC DIS.WIDTH-CV 14.7 % (11.8-14.6); RBC DIS.WIDTH-SD 49.2 % (39-53); RED BLOOD COUNT 3.35 M/uL (3.80-5.20); WHITE BLOOD COUNT 4.9 K/uL (4.1-10.2)
[2018-06-17 22:33] LABS: TROP-I INTERPRETATION NEGATIVE; TROPONIN-I < 0.01 ng/mL (0.0-0.30)
[2018-06-17 22:42] LABS: CHLORIDE 104 mEq/L (99-109); POTASSIUM 3.9 mEq/L (3.7-5.4); SODIUM 141 mEq/L (136-147)
[2018-06-17 22:43] LABS: GLUCOSE 62 mg/dL (70-99)
[2018-06-17 22:47] LABS: CREATININE 3.2 mg/dL (0.6-1.3); GFR ESTIMATE (CALCULATED) 17 mL/min/
[2018-06-17 22:48] LABS: UREA NITROGEN (BUN) 40 mg/dL (9-23)
[2018-06-17 22:55] LABS: QUANTITATIVE HCG < 4.0 MIU/ML
[2018-06-18 02:43] VITALS: BP 106/56
[2018-06-18 06:56] LABS: TROP-I INTERPRETATION NEGATIVE; TROPONIN-I < 0.01 ng/mL (0.0-0.30)
[2018-06-18 07:56] VITALS: BP 101/54
[2018-06-18 11:18] LABS: HEMATOCRIT 27.4 % (36.0-46.0); MCH 29.7 PG (29.0-34.0); MCHC 32.8 G/DL (30.0-36.0); MCV 90.4 FL (83-99); PLATELET COUNT 200 K/uL (156-360); RBC DIS.WIDTH-CV 14.7 % (11.8-14.6); RBC DIS.WIDTH-SD 49.1 % (39-53); RED BLOOD COUNT 3.03 M/uL (3.80-5.20); WHITE BLOOD COUNT 4.2 K/uL (4.1-10.2)
[2018-06-18 11:37] LABS: CHLORIDE 102 mEq/L (99-109); POTASSIUM 3.7 mEq/L (3.7-5.4); SODIUM 140 mEq/L (136-147)
[2018-06-18 11:41] LABS: GLUCOSE 83 mg/dL (70-99)
[2018-06-18 11:42] LABS: CREATININE 3.2 mg/dL (0.6-1.3); GFR ESTIMATE (CALCULATED) 17 mL/min/
[2018-06-18 11:43] LABS: TROP-I INTERPRETATION NEGATIVE; TROPONIN-I < 0.01 ng/mL (0.0-0.30); UREA NITROGEN (BUN) 52 mg/dL (9-23)
[2018-06-18 11:51] VITALS: BP 114/56
[2018-06-18 20:05] VITALS: BP 128/89
[2018-06-19] VITALS (7 sets, daily range): BP systolic 108–131; BP diastolic 52–75
[2018-06-20 07:53] LABS: HEMATOCRIT 27.6 % (36.0-46.0); MCH 28.9 PG (29.0-34.0); MCHC 32.6 G/DL (30.0-36.0); MCV 88.7 FL (83-99); PLATELET COUNT 191 K/uL (156-360); RBC DIS.WIDTH-CV 14.4 % (11.8-14.6); RBC DIS.WIDTH-SD 46.6 % (39-53); RED BLOOD COUNT 3.11 M/uL (3.80-5.20); WHITE BLOOD COUNT 3.2 K/uL (4.1-10.2)
[2018-06-20 08:16] LABS: ALBUMIN 3.6 G/DL (3.2-4.8); CHLORIDE 101 MEQ/L (99-109); GFR ESTIMATE (CALCULATED) 21 mL/min/; PHOSPHORUS 4.5 mg/dL (2.5-4.9); POTASSIUM 3.7 MEQ/L (3.7-5.4); SODIUM 139 MEQ/L (136-147); UREA NITROGEN (BUN) 27 mg/dL (9-23)
[2018-06-20 08:28] LABS: CREATININE 2.7 MG/DL (0.6-1.3); GLUCOSE 127 mg/dL (70-99)
[2018-06-20 11:11] VITALS: BP 121/74
[2018-06-20 12:16] VITALS: BP 119/68
[2018-06-20 15:48] VITALS: BP 100/56
[2018-06-20 19:52] VITALS: BP 106/55
[2018-06-20 23:37] VITALS: BP 130/80
[2018-06-21 04:10] VITALS: BP 115/64
[2018-06-21 08:00] VITALS: BP 113/67
[2018-06-21] MEDS ORDERED: PERCOCET 5/31 TABLET PO (11:17)
[2018-06-21] MEDS ORDERED: PEN-VEE K,VEET500 MG PO ×2 (11:18→11:30)
== END 2018-06-21 13:07 | disposition home or self-care (01) | DRG 252 ==
LOC: EME 21:25 → EDOF 06-18 01:41 → 4SOUTH 06-18 01:41
PROVIDERS: Internal Medicine; Physician Assistant
DX: R07.9 Chest pain, unspecified (principal); N18.6 End stage renal disease; G89.29 Other chronic pain; B95.4 Other streptococcus as the cause of diseases classified elsewhere; F17.200 Nicotine dependence, unspecified, uncomplicated; I50.9 Heart failure, unspecified; F11.20 Opioid dependence, uncomplicated; I07.9 Rheumatic tricuspid valve disease, unspecified; B95.62 Methicillin resistant Staphylococcus aureus infection as the cause of diseases classified elsewhere; J18.9 Pneumonia, unspecified organism; N17.9 Acute kidney failure, unspecified; F12.90 Cannabis use, unspecified, uncomplicated; N20.0 Calculus of kidney; Z87.74 Personal history of (corrected) congenital malformations of heart and circulatory system; F41.9 Anxiety disorder, unspecified; F32.9 Major depressive disorder, single episode, unspecified; F10.10 Alcohol abuse, uncomplicated; D63.1 Anemia in chronic kidney disease; K05.10 Chronic gingivitis, plaque induced; I42.9 Cardiomyopathy, unspecified; Z79.891 Long term (current) use of opiate analgesic; F90.9 Attention-deficit hyperactivity disorder, unspecified type; Z79.82 Long term (current) use of aspirin; Z86.14 Personal history of Methicillin resistant Staphylococcus aureus infection; Z99.2 Dependence on renal dialysis
CPT/HCPCS: 71046; 80048; 80069; 80202; 80306 90; 81003; 83880; 84484; 84702; 85027; 87040; 87070; 87077; 87186; 87801; 93005; 93306; 99281; 99285; G0378; J0881; J1644; J2405; J3370